=== PATIENT | male | born 1950 | race Caucasian/White ===

== ENCOUNTER → 2017-02-05 | Outpatient (CLI) | payer MEDICARE, BC ==
[~2017-02-05] MED LIST: ASPI-664 PO; ATOR80TA75 PO; CINN1CAP2 PO; EXEN10PE SQ; LISI-313 PO; METF-382 PO; [UNRECOGNIZED DRUG - OTHER]
--- NOTE | 2017-02-05 15:01 | RADRPT ---
PROCEDURE: XR Right hip and pelvis. CLINICAL INDICATION: Right hip pain. Pelvic pain. Postop. TECHNIQUE: Two views. Frontal pelvis and lateral right hip. COMPARISON: 02/03/2013. FINDINGS: There is no fracture or dislocation. There are bilateral total hip arthroplasties which appears satisfactory. Surgical clips are present in the right inguinal region. There is no lytic or blastic lesion. The upper pelvis is not completely included on the image. IMPRESSION: 1. Satisfactory postoperative appearance of both hips. 2. Surgical clips in the right inguinal region. RPTAT: QQ .Kenney Quezada MD, MD Date Time Electronically viewed and signed by .Kenney Quezada MD, MD on 02/05/2017 15:01 .R/
--- NOTE | 2017-02-05 20:02 | HKNOTE ---
DATE OF SERVICE: 02/05/2017 The patient had a right ASR hip replacement on 11/10/2016. He comes in for a checkup on his hip. H is serum cobalt and chromium levels have been consistently low. He has also had a left hip replacem ent. He has absolutely no pain in either hip. Both hips feel completely normal. PHYSICAL EXAMINATION: Both hips have full range of motion without pain. IMAGING: Plain x-rays of his pelvis and hips obtained today show perfect bilateral hip replacements without evidence of loosening or any other underlying problem. MANAGEMENT: The patient is being sent for a serum cobalt and chromium. The patient is advised that I will call him with the result if it is abnormal, and if it is within normal range, he does not ne ed to be seen by me again unless he has trouble with either hip. Dictated By: HENNY BREEN/JASPREET Conf#: [id number] DID#: [id number]
== END | disposition home or self-care (01) ==
LOC: HKI 13:31
DX: Z47.1 Aftercare following joint replacement surgery (principal); Z96.643 Presence of artificial hip joint, bilateral
CPT/HCPCS: 73502; G0463

== ENCOUNTER → 2017-08-08 | Outpatient (CLI) | payer MEDICARE, BC ==
[~2017-08-08] MED LIST changes: -METF-382 PO; +METF500T4 PO
--- NOTE | 2017-08-08 15:04 | PN ---
Date/Time of Note Date/Time of Note DATE: 08/08/17 TIME: 14:57 Outpatient Progress Note Chief Complaint Right hip ASR HPI 67-year-old male presents today for follow-up regarding right total hip arthroplasty. This was an ASR patient and surgery was performed on 2006.Patient has no complaints to the right hip as he denies any pain. He is returned to full functionality without any issue.Patient did have concerns because his typical cobalt and chromium levels are around 2.5-3 and on most recent cobalt/chromium levels on 02/08/2017 he had a cobalt range of 9.2 and acromium range of 5.2. Patient still denies any symptoms or any neurological complaints. Presents today as he does have concern regarding recent cobalt levels. Review of Systems Const: No Fever, no chills, no Fatigue, normal appetite, no diaphoresis. Resp: No SOB, no wheezing, no chest pain. CV: No chest pain, no palpitaions, no QUINTANA. Physical Exam Blood pressure is 135/63, temperature is 98.5, pulse is 78, respiratory rate is 12, height is 5 foot 9 inches, weight is 220 pounds General Appearance: well-developed, well-nourished, in no acute distress. Right hip: Gait is normal and nonantalgic. While standing patient is able to actively flex the right hip up to 90 and hold with 5/5 strength on resistance. Patient is able to fully extend. While lying supine patient is able to perform full range of motion regards to straight leg raise of the right hip up to 90 with 5/5 strength on resistance. 5/5 strength on resistance with extension as well. Normal range of motion with abduction and adduction. Normal sensory examination to light touch. Negative Homans sign. Toes are freely movable. Imaging X-ray of the Bilateral hips performed on 08/08/2017 showing all components appearing well aligned, attached and integrated to the bone. No signs of any lucency between metal and bone. Allergies Coded Allergies: No Known Allergy (Verified Allergy, Unknown, 11/10/07) Assessment/Plan Problems: (1) S/P bilateral hip replacements * Repeat cobalt/chromium levels Ordered today given patient's past ASR hip replacement on the right side. * Lengthy discussion was had with patient and Dr. Metz today. Dr. Metz has explained that common indications for replacement with ceramic head is due to significant/severe pain complaints status post high cobalt chromium levels, neurological deficits, high levels of cobalt/chromium, or significant concern given previous ASR recall. * Dr. Metz has recommended that patient undergo repeat cobalt/chromium levels and findings will be discussed with patient when they become readily available to determine the next step in regards to surgical intervention versus ongoing monitoring. Should patient prefer to be monitored, it will likely be 6 months repeat labs of cobalt/chromium levels to ensure that everything is safe. * Patient will Have discussion with Dr. Metz when cobalt/chromium levels are available. Dr. Metz was present for examination today and agrees with plan. Medications Home Meds Reported Medications Lisinopril* (Lisinopril*) 5 Mg Tablet, 5 MG PO DAILY 03/03/14 Cinnamon Bark/Chromium Picolin (CINNAMON PLUS CHROMIUM CAPSULE) 1 Each Capsule, 1 EACH PO QID 03/03/14 [Reseratrol 250 Mg ] No Conflict Check, BID 03/03/14 Aspirin (Aspirin) 81 Mg Tablet., 81 MG PO DAILY 03/03/14 Atorvastatin* (Atorvastatin*) 80 Mg Tablet, 80 MG PO DAILY 03/03/14 Metformin Hcl* (Metformin Hcl*) 500 Mg Tablet, 500 MG PO BID 03/03/14 Exenatide* (Byetta*) 10 Mcg/0.04 Pen.injctr, 10 MCG SQ BID 03/03/14 KALYANI NELSON PA-C Aug 08, 2017 15:04
--- NOTE | 2017-08-08 17:55 | RADRPT ---
PROCEDURE: XR Right hip and pelvis. CLINICAL INDICATION: Right hip pain. Pelvic pain. TECHNIQUE: Two views. Frontal pelvis and lateral right hip. COMPARISON: 02/05/2017. FINDINGS: There are bilateral total hip arthroplasties. These appear satisfactory with no fracture, dislocatio n, or loosening. Surgical clips are present in the right inguinal region. There is no lytic or blastic lesion. The upper pelvis is not completely included on the image. IMPRESSION: 1. Satisfactory postoperative appearance of both hips. 2. Surgical clips in the right inguinal region. RPTAT: QQ .Kenney Quezada MD, MD Date Time Electronically viewed and signed by .Kenney Quezada MD, on 08/08/2017 17:55 .R/
== END | disposition home or self-care (01) ==
LOC: HKI 13:34
DX: Z09 Encounter for follow-up examination after completed treatment for conditions other than malignant neoplasm (principal); Z96.643 Presence of artificial hip joint, bilateral
CPT/HCPCS: 73502; G0463

== ENCOUNTER → 2017-09-18 | Outpatient (CLI) | payer MEDICARE, BC ==
--- NOTE | 2017-09-19 08:39 | HKNOTE ---
DATE OF SERVICE: 09/18/2017 The patient comes in for checkup consultation concerning his right hip. The right hip replacement w as performed in 2006 by me. An ASR socket was used. He had a left hip replacement in 2008 in which a [id number] [place] socket was used. The primary special education teacher recently performed cobalt and chromium levels and found that it had gone up slightly s jaye the last check. The patient called me very concerned about this and I advised him to come on i n for an x-ray of the hip and discussion about the issues. He has absolutely no pain in either hip, and he is extremely pleased with the results of the surgeri es on both hips. In reviewing the notes of Dr. Gary Carvalho, the latest cobalt and chromium levels were found to b e chromium 5.9, cobalt 6.1. PHYSICAL EXAMINATION: VITAL SIGNS: Temperature is normal. Blood pressure 125/72. Height 5 feet 9 inches, weight 220 renetta nds. MUSCULOSKELETAL: Both hips have full range of motion without pain. IMAGING: Examination of the pelvis and hips obtained today at the [facility] ws that the patient has had bilateral hip replacements. All components are well placed and well att ached to the bone. No sign of loosening, no sign of lysis or any other pathological process. MANAGEMENT: Patient was given reassurance that his cobalt and chromium levels have risen slightly f rom the level, they are still low because we consider the threshold for concern to be 10.0 for both cobalt and chromium. The patient was given reassurance and recommended nothing be done specifically for his hips at this time. If he develops any pain, he will return for immediate reevaluation, but other than that, we w ill notify him to have a repeat cobalt and chromium level done 18 months from now. Dictated By: HENNY BREEN/JASPREET Conf#: [id number] DID#: [id number]
== END | disposition home or self-care (01) ==
LOC: HKI 09:30
DX: Z96.643 Presence of artificial hip joint, bilateral (principal)
CPT/HCPCS: G0463

== ENCOUNTER → 2018-02-06 | Outpatient (CLI) | END | disposition home or self-care (01) ==

== ENCOUNTER → 2019-05-13 | Outpatient (CLI) | payer MEDICARE, BC ==
[~2019-05-13] MED LIST changes: +ASPI-1044 PO; -ASPI-664 PO; +ATOR-2 PO; -ATOR80TA75 PO; +METF500T24 PO; -METF500T4 PO
--- NOTE | 2019-05-13 15:02 | CONS ---
Assessment/Plan Assessment/Plan Hospital Course (Demo Recall) 68-year-old male 12 years status post right total hip arthroplasty with ASR component. Currently has no issues. Very pleased with outcome. He does need to continue serial couples and chromium serum iron levels. The last several levels are as follows 07/23/2012 Gregory: 3.1 Chromium: 2.5 02/03/2013 Gregory: 1.9 Chromium: 2.9 02/05/2017 Gregory: 9.2 Chromium: 5.2 08/08/2017 Gregory: 6.3 Chromium: 6.6 Plan: Order serum cobalt and chromium ion levels. Patient will be called with results. If the results are concerning he will be made an appointment for further discussion. If there are no concerns the lab results he will follow-up in 1 year for repeat metal ion tests. In addition he should have annual surveillance for the left total hip as well. Consultation Date/Type/Reason Admit Date/Time Date of Consultation: May 13, 2019 Reason for Consultation Follow-up for right total hip arthroplasty, ASR Date/Time of Note DATE: 05/13/19 TIME: 14:52 Hx of Present Illness 68-year-old male follows up today for follow-up regarding his right total hip arthroplasty which is a [id number] ASR done by Dr. Metz in 2006. He had a left total hip arthroplasty by Dr. Metz in 2008 metal/ceramic on poly. He has had no issues with either hip. He is very pleased with outcome. He has been getting serial cobalt and chromium serum ion levels for monitoring purposes. He has no pain. No numbness and tingling. No limitation in activities. Patient denies fever, chills, shortness of breath, chest pain, nausea/vomiting, constipation, diarrhea, numbness, and tingling. Past Medical History Diabetes type 2 Hypertension Home Meds Reported Medications Lisinopril* (Lisinopril*) 5 Mg Tablet, 5 MG PO DAILY 03/03/14 Cinnamon Bark/Chromium Picolin (CINNAMON PLUS CHROMIUM CAPSULE) 1 Each Capsule, 1 EACH PO QID 03/03/14 [Reseratrol 250 Mg ] No Conflict Check, BID 03/03/14 Aspirin Delayed Release (Aspirin Delayed Release) 81 Mg Tablet., 81 MG PO DAILY 03/03/14 Atorvastatin* (Atorvastatin*) 80 Mg Tablet, 80 MG PO DAILY 03/03/14 Metformin Hcl* (Metformin Hcl*) 500 Mg Tablet, 500 MG PO BID 03/03/14 Exenatide* (Byetta*) 10 Mcg/0.04 Pen.injctr, 10 MCG SQ BID 03/03/14 Allergies: Coded Allergies: No Known Allergy (Verified Allergy, Unknown, 11/10/07) Past Surgical History Right total hip arthroplasty ASR by Dr. Metz 2006 Left total hip arthroplasty by Dr. Metz 2008 Family History Significant Family History: no pertinent family hx Social History Alcohol Use: occasionally Smoking Status: Never smoker Drug Use: none Exam/Review of Systems Exam Vitals Weight: 220 pounds Height: 5 foot 9 inches Heart Rate: 96 Blood Pressure: 104/58 Exam General: Awake, alert, in no acute distress, pleasant and cooperative Heart: regular rhythm Lungs: breathing comfortably, no tachypnea or dyspnea Musculoskeletal: Well developed male in no apparent distress. Gait demonstrates a normal nonantalgic gait. Standing, the pelvis is level. No tenderness over trochanteric bursa or IT band. ----- Range of motion: Fluid and painless full range of motion ----- Sitting there is level pelvic obliquity. Skin was intact throughout both lower extremities. Sensation intact to light touch in a sural, saphenous, deep peroneal, superficial peroneal, medial and lateral plantar nerve distribution. Neurovascular exam showed 5/5 strength in the abductors, quads, EHL/tibialis anterior/gastroc. Normal and symmetrical pulses were palpated in both the dorsalis pedis and posterior tibial arteries. There is no sign of venous stasis. Imaging Imaging Xrays obtained in clinic today and personally reviewed by myself: AP pelvis and AP/Lat of the right hip demonstrate hip s/p TIMO with hip reduced. Components in good position and alignment. No signs of wear, osteolysis, loosening, component failure, or fracture. No acute complications. PETER FREY MD May 13, 2019 15:02
--- NOTE | 2019-05-14 04:33 | RADRPT ---
PROCEDURE: XR pelvis and right hip CLINICAL INDICATION: Pain TECHNIQUE: AP pelvis and AP and frog lateral views of the right hip were performed. COMPARISON: Right hip study 02/06/2018 FINDINGS: Again noted are bilateral total hip prosthesis incompletely visualized on the left without dislocatio n or loosening bilaterally. No acute fractures. No focal bony blastic or lytic lesions. Soft tissues are unremarkable. IMPRESSION: Unremarkable bilateral hip prosthesis without dislocation loosening or acute fractures. RPTAT:AAJJ Physician Charly Date Time Electronically viewed and signed by Trae Toth Physician on 05/14/2019 04:33 BM/
== END | disposition home or self-care (01) ==
LOC: HKI 14:05
PROVIDERS: ATTEND Orthopaedic Surgery Adult Reconstructive Orthopaedic Surgery
DX: Z47.1 Aftercare following joint replacement surgery (principal); Z96.641 Presence of right artificial hip joint
CPT/HCPCS: 73502; G0463